=== PATIENT | female | born 1990 | race Caucasian/White ===

== ENCOUNTER 2024-02-04 16:29 | Outpatient (CLI) | payer OTHER | END 2024-02-04 18:19 | disposition home or self-care (01) | LOC: NST 16:29 | PROVIDERS: ATTEND Obstetrics & Gynecology Gynecology | DX: Z34.83 Encounter for supervision of other normal pregnancy, third trimester (principal) ==

== ENCOUNTER 2024-02-05 14:30 | Inpatient (IN) | payer OTHER ==
[~2024-02-05] VITALS: Ht 177.8 cm; Wt 140.6 kg
[2024-02-12] MEDS ORDERED: OXYTOCIN 20 UNITS/500ML RL PIGGYBAG IV ONE (07:47)
[2024-02-12] MEDS ORDERED: AMPICILLIN SODIUM 2,000 MG VIAL ONE (07:47)
[2024-02-12 08:04] LABS: HEMATOCRIT 35.8 % (36.0-45.00); MEAN CELL VOLUME 83.8 fL (80.00-100.00); MEAN CORPUSCULAR HEMOGLOBIN 28.1 pg (27.00-32.0); MEAN CORPUSCULAR HGB CONC 33.5 g/dl (32.0-36.0); PLATELET COUNT 261 K/uL (150-450); RED BLOOD COUNT 4.26 M/uL (4.00-6.00); RED CELL DISTRIBUTION WIDTH 14.4 % (11.5-14.5)
[2024-02-12] MEDS ORDERED: OXYTOCIN 500 ML IV ONE (08:15)
[2024-02-12 08:37] LABS: INR < 0.93; PARTIAL THROMBOPLASTIN TIME 28.5 SECONDS (22.0-34.0); PROTHROMBIN TIME 9.8 SECONDS (9.0-11.5)
[2024-02-12 08:44] LABS: ALBUMIN 2.9 gm/dL (3.4-5.0); BILIRUBIN TOTAL 0.36 mg/dL (0.3-1.2); CALCIUM 9.1 mg/dL (8.5-10.1); CREATININE SERUM 0.56 mg/dL (0.55-1.02); GFR 123.92; GLOBULINA 3.5 G/DL (2.4-3.5); POTASSIUM 4.64 mEq/L (3.5-5.1); TOTAL PROTEIN 6.4 gm/dL (6.4-8.2)
[2024-02-12] MEDS ORDERED: RINGERS SOLUTION,LACTATED 1,000 ML IV SCH (08:45)
[2024-02-12] MEDS ORDERED: AMPICILLIN SODIUM 2,000 MG VIAL IV ONE (08:45)
[2024-02-12] MEDS ORDERED: ERYTHROMYCIN BASE 1 GM TUBE OP ONE (08:51)
[2024-02-12] MEDS ORDERED: CHLORHEXIDINE GLUCONATE 120 ML BOTTLE TOP ONE (08:51)
[2024-02-12] MEDS ORDERED: OXYTOCIN 20 UNITS/1000ML RL PIGGYBAG IV ONE (08:51)
[2024-02-12] MEDS ORDERED: LIDOCAINE HCL 1% 10ML VIAL ONE (08:52)
[2024-02-12] MEDS ORDERED: MORPHINE SULFATE 4 MG/ML VIAL IV PRN (09:15)
[2024-02-12] MEDS ORDERED: MORPHINE SULFATE 4 MG/ML CARTRIDGE IV PRN (10:45)
[2024-02-12] MEDS ORDERED: AMPICILLIN SODIUM 1,000 MG VIAL IV SCH (12:00)
[2024-02-12] MEDS ORDERED: PRENATAL TABLE1 EAC1 PO (13:43)
[2024-02-12] MEDS ORDERED: DOCUSATE SODIUM 100MG CAP PO SCH (14:10)
[2024-02-12] MEDS ORDERED: OXYTOCIN 1,000 ML IV SCH (14:15)
[2024-02-12] MEDS ORDERED: IBUprofen 400 MG TABLET PO PRN (14:15)
[2024-02-12] MEDS ORDERED: ERYTHROMYCIN BASE 1 GM TUBE OP SCH (14:15)
[2024-02-12] MEDS ORDERED: CHLORHEXIDINE GLUCONATE 120 ML BOTTLE TOP SCH (14:15)
[2024-02-12] MEDS ORDERED: LIDOCAINE HCL 1% 10ML VIAL IJ ONE (14:45)
[2024-02-13 07:36] LABS: HEMATOCRIT 31.7 % (36.0-45.00); HEMOGLOBIN 10.5 g/dL (12.0-15.00); MEAN CELL VOLUME 82.4 fL (80.00-100.00); MEAN CORPUSCULAR HEMOGLOBIN 27.4 pg (27.00-32.0); MEAN CORPUSCULAR HGB CONC 33.3 g/dl (32.0-36.0); PLATELET COUNT 244 K/uL (150-450); RED BLOOD COUNT 3.85 M/uL (4.00-6.00); RED CELL DISTRIBUTION WIDTH 14.5 % (11.5-14.5)
[2024-02-13] MEDS ORDERED: PNV,CALCIUM 72/IRON/FOLIC ACID 1 TAB TABLET PO SCH (09:00)
== END 2024-02-14 16:05 | disposition home or self-care (01) | DRG 807 ==
LOC: OB/GYN 02-06 14:30 → LDR 02-12 06:47 → OB/GYN 02-12 16:12
PROVIDERS: Obstetrics & Gynecology Gynecology; ADMIT Obstetrics & Gynecology Maternal & Fetal Medicine; ATTEND Obstetrics & Gynecology Maternal & Fetal Medicine
PROC: 10E0XZZ Delivery of Products of Conception, External Approach (ICD-10-PCS; principal; 2024-02-12)
PROC: 0KQM0ZZ Repair Perineum Muscle, Open Approach (ICD-10-PCS; 2024-02-12)
PROC: 0UQG7ZZ Repair Vagina, Via Natural or Artificial Opening (ICD-10-PCS; 2024-02-12)
PROC: 4A1HXCZ Monitoring of Products of Conception, Cardiac Rate, External Approach (ICD-10-PCS; 2024-02-12)
DX: O70.1 Second degree perineal laceration during delivery (principal); Z37.0 Single live birth; O99.824 Streptococcus B carrier state complicating childbirth; Z3A.40 40 weeks gestation of pregnancy; Z20.822 Contact with and (suspected) exposure to COVID-19

== ENCOUNTER 2024-02-11 16:04 | Outpatient (CLI) | payer OTHER ==
[2024-02-12] MEDS ORDERED: PRENATAL TABLE1 EAC1 PO (13:43)
== END 2024-02-11 17:08 | disposition home or self-care (01) ==
LOC: NST 16:04
PROVIDERS: ATTEND Obstetrics & Gynecology
DX: Z34.83 Encounter for supervision of other normal pregnancy, third trimester (principal)